=== PATIENT | female | born 1965 | race Caucasian/White ===

== ENCOUNTER 2017-01-16 15:34 | Emergency (ER) | payer BC ==
[2017-01-16 16:27] LABS: Appearance,Urine Cloudy (Clear); Bacteria,Urine Many /hpf; Bilirubin,Urine Negative (Negative); Glucose,Urine (UA) Negative (Negative); Ketones,Urine 1+ (Negative); Leukocyte Esterase,Urine Trace (Negative); Mucus,Urine Few /hpf; Nitrite,Urine Negative (Negative); PH, Urine 5.5 (5.0-8.0); Particle Count 13035; Protein,Urine Trace (Negative); RBC,Urine 4 /hpf (0-5); Specific Gravity,Urine 1.017 (1.001-1.035); Squamous Epithelial Cell,Urine 23 /hpf (0-4); UA Billing (MACRO vs. MICRO) MICRO; Urobilinogen,Urine <2.0 mg/dL (<2.0); WBC,Urine 42 /hpf (0-5)
[2017-01-16] MEDS ORDERED: SODIUM CHLORIDE 0.9% 1,000 ML IV STA (16:34)
--- NOTE | 2017-01-16 17:08 | ED ---
Back Pain HPI - General Chief Complaint: Back Pain/Injury Stated Complaint: kidney stones Time Seen by Provider: 01/16/17 15:46 Source: patient, RN notes reviewed, old records reviewed Limitations: no limitations - History of Present Illness Initial Comments: This is a 51-year-old female presenting to the emergency Department chief complaint of intermittent left-sided back pain. Patient reports that it started over the weekend. It felt like it was a kidney stone as it was coming in waves. Patient reports that she's had no urinary symptoms including no hematuria. Patient states she is not had a kidney stone in many years. Patient reports she also worked out today, pulled a back muscle, and thinks that maybe she has some muscle irritation over this site. Patient states that she's had no recent fever or chills. Denies any pain radiating towards her abdomen. Patient arrives to emergency Department reports that her pain is 0 out of 10. - Related Data Home Medications Medication Instructions Recorded Confirmed Amitriptyline HCl [Elavil] 25 mg PO HS 01/16/17 01/16/17 Meloxicam [Mobic] 15 mg PO DAILY 01/16/17 01/16/17 Omeprazole [PriLOSEC] 20 mg PO AC-BRKFST PRN 01/16/17 01/16/17 Temazepam [Restoril] 15 mg PO HS PRN 01/16/17 01/16/17 Previous Rx's Medication Instructions Recorded Ciprofloxacin HCl [Cipro] 500 mg PO Q12HR 7 Days 01/16/17 HYDROcodone/APAP 5-325MG [[place] 1 tab PO Q6HR PRN #15 tab 01/16/17 5-325] Ketorolac [Toradol] 10 mg PO Q6HR #15 tab 01/16/17 Ondansetron Odt [Zofran Odt] 4 mg PO Q8HR PRN #12 tab 01/16/17 Tamsulosin [Flomax] 0.4 mg PO DAILY #10 cap 01/16/17 Allergies Allergy/AdvReac Type Severity Reaction Status Date / Time ketorolac [From Toradol] AdvReac Itching Verified 01/16/17 16:32 Review of Systems ROS Statement: Those systems with pertinent positive or pertinent negative responses have been documented in the HPI. ROS Other: All systems not noted in ROS Statement are negative. Past Medical History Past Medical History: Fibromyalgia Additional Past Medical History / Comment(s): kidney stones. insomnia History of Any Multi-Drug Resistant Organisms: None Reported Past Surgical History: No Surgical Hx Reported Past Psychological History: No Psychological Hx Reported Smoking Status: Never smoker Past Alcohol Use History: Occasional Past Drug Use History: None Reported General Exam - General Exam Comments Initial Comments: This is a 51-year-old female. No acute distress. Limitations: no limitations General appearance: alert, in no apparent distress Head exam: Present: atraumatic, normocephalic, normal inspection Eye exam: Present: normal appearance, PERRL, EOMI. Absent: scleral icterus, conjunctival injection, periorbital swelling ENT exam: Present: normal exam, mucous membranes moist Neck exam: Present: normal inspection. Absent: tenderness, meningismus, lymphadenopathy Respiratory exam: Present: normal lung sounds bilaterally. Absent: respiratory distress, wheezes, rales, rhonchi, stridor Cardiovascular Exam: Present: regular rate, normal rhythm, normal heart sounds. Absent: systolic murmur, diastolic murmur, rubs, gallop, clicks GI/Abdominal exam: Present: soft, normal bowel sounds. Absent: distended, tenderness, guarding, rebound, rigid Extremities exam: Present: normal inspection, full ROM, normal capillary refill. Absent: tenderness, pedal edema, joint swelling, calf tenderness Back exam: Present: normal inspection, CVA tenderness (L) Neurological exam: Present: alert, oriented X3, CN II-XII intact Psychiatric exam: Present: normal affect, normal mood Skin exam: Present: warm, dry, intact, normal color. Absent: rash Course Vital Signs 01/16/17 01/16/17 01/16/17 15:38 18:14 18:54 Temperature 98.8 F 98.2 F 98.7 F Pulse Rate 84 66 68 Respiratory 18 18 16 Rate Blood Pressure 117/77 132/70 130/78 O2 Sat by Pulse 97 99 99 Oximetry Medical Decision Making - Medical Decision Making 51-year-old [employer] chief complaint of left flank pain intermittently for the past few days. Urinalysis did not show any signs of blood and at this time. Patient does report that her pain is a 0 out of 10. But only since the pain seems to be intermittent. Patient blood work showed no acute abnormalities. CBC x-ray did show a 3.5 mm stone in the left lower pole thickening. Discusses is likely the source of patient's pain. Discussed measures 3.5 mm, and it discussed that I did not want to do a CAT scan for further radiation given patient's negative symptoms. Discussed that I will put the patient on medications to try any stone, including Toradol, [place], Cipro for concern for infection with white blood cells in her urine, as well as Flomax. Patient advised to follow-up with her primary care provider. Discussed returning there is any worsening signs or symptoms. Patient is history plan will comply. Return parameters were discussed. - Lab Data Result diagrams: 01/16/17 17:03 01/16/17 17:03 Lab Results 01/16/17 01/16/17 01/16/17 Range/Units 15:50 17:03 17:03 WBC 7.8 (3.8-10.6) k/uL RBC 4.55 (3.80-5.40) m/uL Hgb 14.3 (11.4-16.0) gm/dL Hct 42.5 (34.0-46.0) % MCV 93.4 (80.0-100.0) fL MCH 31.5 (25.0-35.0) pg MCHC 33.8 (31.0-37.0) g/dL RDW 12.7 (11.5-15.5) % Plt Count 281 (150-450) k/uL Neutrophils % 67 % Lymphocytes % 22 % Monocytes % 7 % Eosinophils % 2 % Basophils % 0 % Neutrophils # 5.2 (1.3-7.7) k/uL Lymphocytes # 1.7 (1.0-4.8) k/uL Monocytes # 0.5 (0-1.0) k/uL Eosinophils # 0.1 (0-0.7) k/uL Basophils # 0.0 (0-0.2) k/uL Sodium 139 (137-145) mmol/L Potassium 4.1 (3.5-5.1) mmol/L Chloride 102 (98-107) mmol/L Carbon Dioxide 26 (22-30) mmol/L Anion Gap 11 mmol/L BUN 18 H (7-17) mg/dL Creatinine 0.80 (0.52-1.04) mg/dL Est GFR (MDRD) Af Amer >60 (>60 ml/min/1.73 sqM) Est GFR (MDRD) Non-Af >60 (>60 ml/min/1.73 sqM) Glucose 89 (74-99) mg/dL Calcium 9.5 (8.4-10.2) mg/dL Total Bilirubin 0.5 (0.2-1.3) mg/dL AST 24 (14-36) U/L ALT 37 (9-52) U/L Alkaline Phosphatase 71 (38-126) U/L Total Protein 7.2 (6.3-8.2) g/dL Albumin 4.3 (3.5-5.0) g/dL Lipase 82 (23-300) U/L Urine Color Yellow Urine Appearance Cloudy H (Clear) Urine pH 5.5 (5.0-8.0) Ur Specific [place] 1.017 (1.001-1.035) Urine Protein Trace H (Negative) Urine Glucose (UA) Negative (Negative) Urine Ketones 1+ H (Negative) Urine Blood Negative (Negative) Urine Nitrite Negative (Negative) Urine Bilirubin Negative (Negative) Urine Urobilinogen <2.0 (<2.0) mg/dL Ur Leukocyte Esterase Trace H (Negative) Urine RBC 4 (0-5) /hpf Urine WBC 42 H (0-5) /hpf Ur Squamous Epith Cells 23 H (0-4) /hpf Urine Bacteria Many H (None) /hpf Urine Mucus Few H (None) /hpf - Radiology Data Radiology results: report reviewed Stable 3.5 mm renal calculus with a left lower pole. Disposition Clinical Impression: Renal calculus, left Disposition: HOME SELF-CARE Condition: Good Instructions: Kidney Stones (ED) Additional Instructions: Follow up with your Regular care provider. Take the medications as prescribed. Return to the emergency department if any alarming signs or symptoms occur. Prescriptions: Ciprofloxacin HCl [Cipro] 500 mg PO Q12HR 7 Days HYDROcodone/APAP 5-325MG [[place] 5-325] 1 tab PO Q6HR PRN #15 tab PRN Reason: Pain Ketorolac [Toradol] 10 mg PO Q6HR #15 tab Ondansetron Odt [Zofran Odt] 4 mg PO Q8HR PRN #12 tab PRN Reason: Nausea Tamsulosin [Flomax] 0.4 mg PO DAILY #10 cap Referrals: Dembosky,Duran R, MD [Primary Care Provider] - 1-2 days Morris Duff MD [STAFF PHYSICIAN] - 1-2 days Time of Disposition: 18:26
[2017-01-16 17:16] LABS: Basophils % (A) 0 %; CH 31.4; CHCM 33.7; Eosinophils # (A) 0.1 k/uL (0-0.7); Eosinophils % (A) 2 %; HCT 42.5 % (34.0-46.0); HDW 2.19; HGB 14.3 gm/dL (11.4-16.0); Luc # (Auto) 0.26; Luc % (Auto) 3; Lymphocytes # (A) 1.7 k/uL (1.0-4.8); Lymphocytes % (A) 22 %; MCH 31.5 pg (25.0-35.0); MCHC 33.8 g/dL (31.0-37.0); MCV 93.4 fL (80.0-100.0); Mean Platelet Volume 7.2; Monocytes # (A) 0.5 k/uL (0-1.0); Monocytes % (A) 7 %; Neutrophils # (A) 5.2 k/uL (1.3-7.7); Neutrophils % (A) 67 %; RBC 4.55 m/uL (3.80-5.40); RDW 12.7 % (11.5-15.5); WBC 7.8 k/uL (3.8-10.6); WBC (Perox) 7.69
[2017-01-16 17:26] LABS: ALT 37 U/L (9-52); AST 24 U/L (14-36); Alkaline Phosphatase 71 U/L (38-126); Anion Gap 11 mmol/L; Blood Urea Nitrogen 18 mg/dL (7-17); Calcium 9.5 mg/dL (8.4-10.2); Carbon Dioxide 26 mmol/L (22-30); Chloride 102 mmol/L (98-107); Glucose 89 mg/dL (74-99); Non-African American GFR(MDRD) >60 (>60 ml/min/1.73 sqM); Potassium 4.1 mmol/L (3.5-5.1); Sodium 139 mmol/L (137-145); Total Bilirubin 0.5 mg/dL (0.2-1.3); Total Protein 7.2 g/dL (6.3-8.2)
--- NOTE | 2017-01-16 18:16 | XR ---
EXAMINATION TYPE: XR KUB DATE OF EXAM: 01/16/2017 COMPARISON: NONE HISTORY: Left-sided abdominal pain TECHNIQUE: Single upright abdominal radiograph was obtained. FINDINGS: Bowel gas pattern is unremarkable. No dilated bowel loops or evidence of air-fluid levels. Osseous structures appear intact. Calcification over the left lower pole of the kidney measures appro ximately 3.5 mm and likely represents a renal calculus versus colonic debris. IMPRESSION: 1. Nonobstructive bowel gas pattern. 2. Left lower pole probable 3.5 mm renal calculus.
[2017-01-16] MEDS ORDERED: ONDANSETRON 4 MG ODT STARTER PACK 2 TAB BTL PO STA (18:29)
[2017-01-16 18:56] VITALS: BP 130/78; PULSE 68; RESP 16; TEMP 98.7
== END 2017-01-16 18:55 | disposition home or self-care (01) ==
LOC: EC 15:34
DX: N20.0 Calculus of kidney (principal); M79.7 Fibromyalgia; Z79.1 Long term (current) use of non-steroidal anti-inflammatories (NSAID); Z79.899 Other long term (current) drug therapy; Z88.6 Allergy status to analgesic agent; Z87.898 Personal history of other specified conditions
CPT/HCPCS: 36415; 80053; 83690; 85025; 81001; 87086; 74000; 99284; 96360; S0119

== ENCOUNTER → 2017-07-29 | Outpatient (CLI) | payer BC ==
--- NOTE | 2017-07-29 16:55 | XR ---
Abdomen HISTORY: Kidney stone Frontal view of the abdomen correlated to prior abdomen 01/16/2017 Bowel gas may obscure detail. There is no evident bowel obstruction or pneumoperitoneum. Lung bases a re clear. Bones are stable, L5 is sacralized. Suspect an oval calcification in left hemipelvis measur ing approximately 4 mm. IMPRESSION: Difficult to exclude distal left ureteral calculus.
== END | disposition home or self-care (01) ==
LOC: RADXRMAIN 13:32
PROVIDERS: ATTEND Urology
DX: N20.0 Calculus of kidney (principal)
CPT/HCPCS: 74018

== ENCOUNTER → 2017-09-02 | Outpatient (CLI) | payer BC ==
[2017-09-02 09:08] LABS: Basophils % (A) 0 %; Eosinophils # (A) 0.2 k/uL (0-0.7); Eosinophils % (A) 3 %; HCT 42.3 % (34.0-46.0); HGB 13.8 gm/dL (11.4-16.0); Lymphocytes # (A) 1.5 k/uL (1.0-4.8); Lymphocytes % (A) 20 %; MCH 30.2 pg (25.0-35.0); MCHC 32.7 g/dL (31.0-37.0); MCV 92.3 fL (80.0-100.0); Mean Platelet Volume 7.5; Monocytes # (A) 0.5 k/uL (0-1.0); Monocytes % (A) 6 %; Neutrophils # (A) 5.3 k/uL (1.3-7.7); Neutrophils % (A) 69 %; Platelet Count 279 k/uL (150-450); RBC 4.58 m/uL (3.80-5.40); RDW 12.8 % (11.5-15.5); WBC 7.7 k/uL (3.8-10.6)
[2017-09-02 09:23] LABS: Anion Gap 12 mmol/L; Blood Urea Nitrogen 20 mg/dL (7-17); Calcium 9.4 mg/dL (8.4-10.2); Carbon Dioxide 26 mmol/L (22-30); Chloride 101 mmol/L (98-107); Glucose 88 mg/dL (74-99); Potassium 4.1 mmol/L (3.5-5.1); Sodium 139 mmol/L (137-145)
== END | disposition home or self-care (01) ==
LOC: LABPAT 08:05
PROVIDERS: ATTEND Obstetrics & Gynecology
DX: Z01.818 Encounter for other preprocedural examination (principal); Z01.812 Encounter for preprocedural laboratory examination
CPT/HCPCS: 36415; 80048; 85025; 93005

== ENCOUNTER → 2018-05-02 | Outpatient (CLI) | payer BC ==
--- NOTE | 2018-05-02 12:14 | MM ---
Reason for exam: additional evaluation requested from prior study. Last mammogram was performed 1 year ago. History: Patient is postmenopausal and is nulliparous. Family history of breast cancer in paternal grandmother. Benign US biopsy breast VAD RT of the right breast, May 02, 2017. MG discontinued stereo core RT of the right breast, May 02, 2017. Physical Findings: Nurse did not find any significant physical abnormalities on exam. MG 3D Diag Mammo W/Cad MARGARETH Bilateral CC and MLO view(s) were taken. Prior study comparison: May 02, 2017, right breast MG diagnostic mammo RT wo CAD. April 26, 2017, right breast MG 3d work up w/cad RT. The breast tissue is heterogeneously dense. This may lower the sensitivity of mammography. Persistent distortion on CC, central breast on spot compression view. Possibly correlate superior breast 3.5-4cm from nipple. These results were verbally communicated with the patient and result sheet given to the patient on 05/02/18. ASSESSMENT: Incomplete: need additional imaging evaluation, BI-RAD 0 RECOMMENDATION: Ultrasound of the right breast. (attention 11-12 o'clock, 4 o'clock)
--- NOTE | 2018-05-02 12:21 | USB ---
Reason for exam: additional evaluation requested from abnormal screening. History: Patient is postmenopausal and is nulliparous. Family history of breast cancer in paternal grandmother. Benign US biopsy breast VAD RT of the right breast, May 02, 2017. MG discontinued stereo core RT of the right breast, May 02, 2017. US Breast RT Right complete breast ultrasound includes all four quadrants, the retroareolar region and axilla. Finding demonstrates a 6 x 4 x 6mm oval, cystic, benign lesion at 11 o'clock. No correlate with 3D distortion seen persistently on spot CC 32/62 on today's exam. These results were verbally communicated with the patient and result sheet given to the patient on 05/02/18. ASSESSMENT: Suspicious, BI-RAD 4 RECOMMENDATION: Stereotactic core biopsy of the right breast. (3D) Called Dr. Flores with mammographic findings. Office will contact patient to scheduled 3D stereotactic biopsy per Marily at office. PRELIMINARY REPORT CALLED AND FAXED TO DR. FLORES ON 05/02/18.
== END ==
LOC: RADMAMWWP 10:36
PROVIDERS: ATTEND Internal Medicine
DX: R92.8 Other abnormal and inconclusive findings on diagnostic imaging of breast (principal)
CPT/HCPCS: 77062; 77066